=== PATIENT | male | born 1955 | race African-American/Black ===

== ENCOUNTER 2020-07-31 12:59 | Emergency (ER) | payer MEDICAID, MEDICARE ==
[~2020-07-31] VITALS: Ht 172.7 cm; Wt 93.3 kg
[~2020-07-31 12:59] MED LIST: AMOX1TAB64 PO; CLIN300C9 PO; FLUT16SP24 NAS; FURO-93 PO; IPRA4AER INH; LISI5TAB7 PO; LORA-247 PO; OXYC5TAB98 PO; PRED5TAB PO; SULF-169 PO; TRAM-47 PO
--- NOTE | 2020-07-31 13:41 | NUR ---
PT RECENTLY WENT TO URGENT CARE FOR SWELLING INLOWER EXTS. PT DENIES CP, NV, OR ANGULO. PT EXPERIENCING INTERMITTANT SOB AND DIARRHEA. PT STATES HE HAS BEEN DEALING WITH THIS ISSUE SINCE 2009.
[2020-07-31 14:14] LABS: MEAN CORPUSCULAR HEMOGLOBIN 31.7 pg (27.5-34.5); MEAN PLATELET VOLUME 7.6 fL (7.4-10.4); PLATELET COUNT 264 x10^3/uL (130-400); RED BLOOD COUNT 4.68 x10^6/uL (4.38-5.82); RED CELL DISTRIBUTION WIDTH 12.7 % (9.4-14.8)
[2020-07-31 14:26] LABS: ALBUMIN 3.2 g/dL (3.4-5.0); ANION GAP 4 mmol/L (5-15); CALCIUM 8.5 mg/dL (8.5-10.1); CHLORIDE 108 mmol/L (98-107); CREATININE 1.07 mg/dL (0.7-1.3)
[2020-07-31 14:30] LABS: TROPONIN I < 0.015 ng/mL (0.000-0.045)
[2020-07-31 14:58] LABS: MD YES
[2020-07-31 15:01] LABS: BASOS#(MANUAL) 0.05 x10^3/uL (0-0.1); BASOS% (MANUAL) 1 % (0-1); EOS#(MANUAL) 0.05 x10^3/uL (0.0-0.4); EOS% (MANUAL) 1 % (1-7); LYMPH#(MANUAL) 1.92 x10^3/uL (1-3.4); LYMPHS% (MANUAL) 37 % (22-44); MONOS#(MANUAL) 0.83 x10^3/uL (0.3-2.7); MONOS% (MANUAL) 16 % (2-9); SEG#(MANUAL) 2.34 x10^3/uL (1.8-6.8); SEGS% (MANUAL) 45 % (42-75)
[2020-07-31 15:02] LABS: <PLATELET ESTIMATE> ADEQUATE; <PLT MORPHOLOGY> NORMAL PLT MORPH; <RBC MORPHOLOGY> NORMAL
--- NOTE | 2020-07-31 15:16 | NUR ---
PT TOLD CT HE DOES NOT WANT IV FOR CTA
[2020-07-31] MEDS ORDERED: OMNIPAQUE 350 MG/ML, 75ML BOTTLE ONE (15:52)
[2020-07-31 16:45] VITALS: BP 145/79
--- NOTE | 2020-07-31 17:32 | NUR ---
TURN OUT NOTE: PT GIVEN DC INSTRUCTIONS BY TASK XIOMARA GORDON, PT A&O, RESPS EVEN AND UNLABORED, AMBULATORY WITH STEADY GAIT OUT OF DEPARTMENT.
== END 2020-07-31 17:33 | disposition home or self-care (01) ==
LOC: ED 13:04
DX: R60.0 Localized edema (principal); R06.02 Shortness of breath; M79.89 Other specified soft tissue disorders; F17.210 Nicotine dependence, cigarettes, uncomplicated
CPT/HCPCS: 36415; 71275; 80048; 82040; 83880; 84484; 85025; 93005; 93970; 99285; 99406; Q9967